=== PATIENT | male | born 1960 | race Caucasian/White ===

== ENCOUNTER → 2023-10-12 06:44 | Outpatient (REF) | payer BC, SELFPAY | LOC: PAVMRI 06:44 | PROVIDERS: ATTENDING PHYSICIAN Family Medicine | DX: R41.3 Other amnesia (principal) | CPT/HCPCS: 70551 ==

== ENCOUNTER → 2023-11-15 16:41 | Outpatient (REF) | payer BC, SELFPAY | LOC: MRI 3T 16:41 | PROVIDERS: ATTENDING PHYSICIAN Family Medicine | DX: R90.89 Other abnormal findings on diagnostic imaging of central nervous system (principal) | CPT/HCPCS: 70544; 70548; A9585 ==

== ENCOUNTER → 2024-12-13 08:40 | Outpatient (REF) | payer BC, SELFPAY | LOC: HWRAD 08:40 | PROVIDERS: ATTENDING PHYSICIAN Family Medicine | DX: Z13.6 Encounter for screening for cardiovascular disorders (principal); I70.0 Atherosclerosis of aorta; E78.00 Pure hypercholesterolemia, unspecified; I65.22 Occlusion and stenosis of left carotid artery; R79.89 Other specified abnormal findings of blood chemistry | CPT/HCPCS: 75571 ==

== ENCOUNTER → 2025-03-12 20:00 | Outpatient (REF) | payer BC, SELFPAY | LOC: MRI 3T 20:00 | PROVIDERS: ATTENDING PHYSICIAN Family Medicine | DX: M25.562 Pain in left knee (principal) | CPT/HCPCS: 73721 ==